=== PATIENT | female | born 1955 | race Caucasian/White ===

== ENCOUNTER → 2019-06-10 | Outpatient (CLI) | payer BC ==
--- NOTE | 2019-06-14 08:10 | Diagnostic Imaging Report ---
Exam: Bone mineral density study. History: Osteopenia. Comparison: None Discussion: Evaluation of the left hip and lumbar spine was performed utilizing DEXA Hologic bone densitometer. The study is technically adequate. Left hip total bone mineral density: 0.847gm/cm2, T-score is -0.8, Z-score is 0.3. Left hip femoral neck bone mineral density: 0.778gm/cm2, T-score is -0.6, Z-score is 0.8. Lumbar spine total bone mineral density:1.072gm/cm2, T-score is0.2, Z-score is 1.8. Impression: 1. Normal bone mineral density of the left hip, fracture risk is not increased. 2. Normal bone mineral density of the lumbar spine, fracture risk is not increased. Least significant change (LSC) for bone mineral density as provided by pet handler is 0.023 g/cm2 for lumbar spine and 0.027 g/cm2 for total hip. 10 -year fracture risk per WHO Fracture Risk Assessment Tool (FRAX) for: Not reported because all T-scores at or above -1.0 The patient's fracture risk is compared to an age-matched control. Medical evaluation for secondary causes of low bone bone mineral density may be appropriate. Correlate clinically for the necessity and timing of the next bone mineral density study. Signed by: Dr. Linden Mohan M.D. on 06/14/2019 8:07 AM
--- NOTE | 2019-06-21 08:34 | Diagnostic Imaging Report ---
#[id number] - MGSCRBIL #BILATERAL DIGITAL SCREENING MAMMOGRAM WITH CAD: 06/10/2019 CLINICAL: Routine screening. No prior exams were available for comparison. Current study contains 4 films. There are scattered fibroglandular elements in both breasts. Current study was also evaluated with a Computer Aided Detection (CAD) system. Benign appearing calcifications are noted bilaterally. There is a focal asymmetry in the right breast at 11 o'clock middle depth. No other significant masses, calcifications, or other findings are seen in either breast. IMPRESSION: INCOMPLETE: NEEDS ADDITIONAL IMAGING EVALUATION The focal asymmetry in the right breast is indeterminate. Mediolateral and compression views as well as a possible ultrasound are recommended. The patient will be contacted by the Mammography Department to schedule this appointment. ALFREDO THOMPSON M.D. ct/penrad:06/18/2019 09:46:51 Fuel Assembler: Ria BENTLEY)([employer]), [facility] letter sent: Additional Imaging Needed Mammogram BI-RADS: 0 Indeterminate
== END ==
LOC: MAMMO 12:09
PROVIDERS: ATTEND Internal Medicine
DX: Z12.31 Encounter for screening mammogram for malignant neoplasm of breast (principal); M85.80 Other specified disorders of bone density and structure, unspecified site
CPT/HCPCS: 77067; 77080

== ENCOUNTER → 2019-07-02 | Outpatient (CLI) | payer BC ==
--- NOTE | 2019-07-06 09:29 | Diagnostic Imaging Report ---
#[id number] - USBRELIMRT ULTRASOUND OF THE RIGHT BREAST : 07/02/2019 Comparison is made to exams dated: 07/02/2019 mammogram and 06/10/2019 mammogram - [facility]. Real-time ultrasound was performed on the right breast. There are no solid or cystic masses identified. IMPRESSION: BENIGN There is no sonographic evidence of malignancy. A 1 year screening mammogram is recommended. ALFREDO THOMPSON M.D. ct/penrad:07/02/2019 11:01:19 Embedded Systems Engineer: YESICA CASTANEDA RDMS, [facility] letter sent: Normal Exam Ultrasound BI-RADS: 2 Benign
--- NOTE | 2019-07-06 09:29 | Diagnostic Imaging Report ---
#[id number] - MGDXRT #UNILATERAL RIGHT DIGITAL DIAGNOSTIC MAMMOGRAM WITH SPOT COMPRESSION: 07/02/2019 Comparison is made to exam dated: 06/10/2019 mammogram - [facility]. Current study contains 3 films. There are scattered fibroglandular elements in the right breast. Additional views demonstrate no underlying abnormality. No significant masses, calcifications, or other findings are seen in the breast. IMPRESSION: BENIGN See the report for ultrasound performed the same day for additional details. There is no mammographic evidence of malignancy. A 1 year screening mammogram is recommended. The patient will be notified by letter of the results. ALFREDO THOMPSON M.D. ct/penrad:07/02/2019 11:00:48 Stamp Maker: Ria BENTLEY)(M), [facility] letter sent: Normal Exam Mammogram BI-RADS: 2 Benign
== END ==
LOC: MAMMO 08:46
PROVIDERS: ATTEND Internal Medicine
DX: R92.8 Other abnormal and inconclusive findings on diagnostic imaging of breast (principal)

== ENCOUNTER → 2021-03-23 | Outpatient (CLI) | payer BC | LOC: MAMMO 14:14 | PROVIDERS: ATTEND Internal Medicine | DX: Z12.31 Encounter for screening mammogram for malignant neoplasm of breast (principal) | CPT/HCPCS: 77067 ==

== ENCOUNTER → 2022-08-07 | Outpatient (CLI) | payer BC | LOC: MAMMO 09:39 | PROVIDERS: ATTEND Internal Medicine | DX: Z12.31 Encounter for screening mammogram for malignant neoplasm of breast (principal); M19.011 Primary osteoarthritis, right shoulder | CPT/HCPCS: 77067 ==

== ENCOUNTER → 2023-01-29 | Outpatient (CLI) | payer BC, MEDICARE | LOC: RAD 10:16 | PROVIDERS: ATTEND Internal Medicine | DX: S63.91XA Sprain of unspecified part of right wrist and hand, initial encounter (principal) ==